=== PATIENT | female | born 1945 | race Caucasian/White ===

== ENCOUNTER 2025-04-30 13:43 | Emergency (ER) | payer MEDICARE, SELFPAY ==
--- NOTE | ~2025-04-30 | CT_ITS ---
CLINICAL HISTORY: head trauma CT Head Without Contrast: Comparison: None Findings: Cortical sulci are symmetric Basal ganglia are unremarkable No shift in midline structures No intraparenchymal bleeding or abnormal extra axial blood fluid collections Normal pituitary size Clear paranasal sinuses Unremarkable orbital structures No depressed fractures Impression: Unremarkable CT of the head, no signs of acute trauma This document has been electronically signed by: Iraj Mendez MD on 04/30/2025 18:19:46
--- NOTE | ~2025-04-30 | CT_ITS ---
CLINICAL HISTORY: trauma CT cervical spine without contrast Comparison: None Findings: Normal limited view of the intracranial contents. Soft tissues of the neck are normal. Lung apices are clear. Normal vertebral body alignment. No fractures or dislocations. There is moderate degenerative narrowing at C5-6 with mild foraminal stenosis. Impression: Moderate degenerative disc disease at C5-6 with mild foraminal stenosis. No signs of acute trauma. This document has been electronically signed by: Iraj Mendez MD on 04/30/2025 18:15:21
[2025-04-30 13:55] VITALS: BP 132/86; BP 199/81; PULSE 68; PULSE 75; RESP 17; TEMP 36.6; O2SAT 94; O2SAT 95; BMI 29.7
[2025-04-30 13:58] VITALS: BP 199/81; PULSE 75; RESP 17; TEMP 36.6; O2SAT 95
--- OUTSIDE RECORDS SUMMARY | 2025-04-30 14:22 | XMS_ITS | Encounter Summary ---
Author Organization [facility] Address [address] [place] [address] [place] [phone] Phone Care Team Providers Care Cut Lace Machine Operator Name Role Phone Radha Riddle MD Unavailable [phone] Radha Riddle MD Primary Care Provider [phone] Reason for Visit * Reason Onset Date Comments Triage 03/25/2025 Red- asthma,whee zing Encounter Details Date Type Department Care Team (Late st Contact Info) Description 03/25/2025 Telephone [facility] [place] [address] [place] [address] Radha Riddle MD [address] [facility] [address] [place] [address] [email or web address] Triage (Red- asthma,wheezing) Social History Tobacco Use Types Packs/Day Years Used Date Smoking Tobacco: Never Smokeless Tobacco: Never Alcohol Use Standard Drinks/Week Comments Yes 0 (1 standard drink = 0.6 oz pur e alcohol) glass of wine 5 days a week Child or Family Care Answer Date Record ed Do you have problems with on e of the following making it difficult for you to work, study, or receive health care? No 08/02/2024 Education Answer Date Recorded Are you interested in more education? Not on april e 06/22/2024 Are you concerned about learning? Not on file 06/22/2024 No 06/22/2024 No 06/22/2024 Food Answer Date Recorded Within the past 6 months we worried whether our food would run out before we got money to buy more. Never True 08/02/2024 Within the past 6 months the food we bought just didn't last and we didn't have enough money to get more. Never True Residential Stability Answer Date Recor ded What is your housing situation today? I have dannielle swenson 08/02/2024 How many times have you move d in the past 12 months? Zero (I did not move) 08/02/2024 Paying for Meds Answer Date Recorded Do you have trouble paying for medicines? No 08/02/2024 Paying Utility Bills Answer Date Record ed Do you have trouble paying your heating or elect ricity bill? No 08/02/2024 Transportation Answer Date Recorded Has the lack of transportati on kept you from medical appointments or from getting medications? No 08/02/2024 Unemployment Answer Date Recorded Are you currently unemployed or working on a part-time or temporary basis, and looking for work? No 06/17/2022 Digital Access Answer Date Recorded No 08/02/2024 Yes 08/02/2024 Do you have reliable internet access at home? Ye s 08/02/2024 Do you have a device (e.g., phone, tablet, computer) with a working camera? Yes 08/02/2024 Intimate Partner Violence Answer Date R ecorded Denied Basic Needs Not on file 08/02/2024 In the past 12 months have y ou been in a relationship with a person who hurts, threatens, or tries to control you? No 08/02/2024 Worried food would run out Not on file 08/02 In the past 12 months have y ou been in a relationship with a person who hurts, threatens, or tries to control you? No 08/02/2024 Comments Unknown Sex and Gender Information Value Date Recorded Sex Assigned at Female 05/30/2020 12:29 PM EST Legal Sex Female 10:09 PM EDT Gender Identity Female 05/30/2020 12:29 PM EST Sexual Orientation Not on file documented as of this encounter Progress Notes * Nadira Durand LPN - 03/25/2025 2:17 PM EDT She started w/ nasal congestion on Friday and has noted over the past several day increase in SOB.She has tried mucinex and zyrtec w/ little effect. She will go now to [facility] for eval and tx. FYI Nurse Triage Encounter Note Reason for Triage Lolis Pickard contacted office for Triage Red- asthma,wheezing Call Disposition Disposition Comments: Patient/caregiver understands and will follow disposition: Initial Symptom Screening and Assessment IA Symptom Onset 3-5 days Care Advice No Care Advice given for this encounter. Patient will call back with additional questions or if symptoms change or worsen Nadira Durand LPN Reason for Disposition and Assessment * Nadira Durand LPN - 03/25/2025 10:58 AM EDT Called Cell number would not ring. Call placed to home phone rang left detailed message to seek emergency care. * Nadira Durand LPN - 03/25/2025 10:10 AM EDT Attempted to call x 2 - would not ring. ( Phone issues site wide) * Mary Hudson - 03/25/2025 9:55 AM EDT [facility] Top Smart Phrases: Red Yellow Green Guidelines Select Red, Yellow, Green Triage Intake *Route to appropriate staff member/pool according to practice guidelines* Red Call Intake Call Back Number: (if not patient, name/relationship and if patient is with caller) [phone] Red Symptom(s): Triage (Red- asthma,wheezing) When did these symptoms start? Past few days Have you ever experienced these symptoms before? NO Additional information: (Call was transferred to nurse) Transfer LIVE call to RN for prompt triage Reason for Call = TRIAGE Comment = RED + symptom Route TE directly to the RN receiving the warm transfer, NOT the nursing pool documented in this encounter Plan of Treatment Upcoming Encounters Date Type Department Care Team (Late st Contact Info) Description 08/05/2025 10:00 AM EST Office Visit [facility] [address] [place] [address] Radha Riddle MD [address] [place] [phone] [email or web address] documented as of this encounter Visit Diagnoses Not on filedocumented in this encounter Additional Health Concerns Infection Onset Date Last Indicated Resolved Time CoV-Risk Comment:Per Ambulatory Triage Form 03/25/2025 03/25/202504/05 1:21 AM EDT Assessment Noted Time PHQ-2 Depression Total Score: 0 08/03/19 25 11:15 AM EST documented as of this encounter Care Teams Cut Lace Machine Operator Relationship Specialty Start Date End Date Radha Riddle MD [address] [place] [phone] [email or web address] PCP - General Family Medicine 12/29/19 Radha Riddle MD [address] [place] [phone] [email or web address] Historical LMR Provider 05/14/17 documented as of this encounter Additional Source Comments The information contained in this document represents components of the legal health record. It is not the complete legal health record.[facility]
--- OUTSIDE RECORDS SUMMARY | 2025-04-30 14:22 | XMS_ITS | Clinical Summary ---
Author Organization [facility] Address [address] [address] Phone Care Team Providers Care Hospital Receiving Clerk Name Role Phone Radha Riddle MD Unavailable [phone] Radha Riddle MD Primary Care Provider Allergies No known active allergies Medications apixaban (ELIQUIS) 5 mg tablet Take 5 mg by mouth 2 (two) times a day. Active sotalol (BETAPACE) 80 MG tablet Take 120 mg by mouth 2 (two) times a day. Active famotidine (PEPCID) 40 MG tabletIndication s:Gastroesophage al reflux disease without esophagitis TAKE 1 TABLET BY MOUTH EVERY DAY 90 tablet 1 07/31/2022 Active cyclobenzaprine (FLEXERIL) 5 MG tabletIndication s:Cervicalgia Take 1 tablet (5 mg total) by mouth 3 (three) times a day as needed. 15 tablet 12/10/2023 Active BREO ELLIPTA 100-25 mcg/dose inhaler Inhale 1 puff into the lungs. 12/09/2023 Active nitrofurantoin (MACROBID) 100 MG capsuleIndicatio ns:Recurrent UTI Take 1 capsule (100 mg total) by mouth 2 (two) times a day. 10 capsule 12/28/2024 Active Active Problems Problem Noted Date Diagnosed Date Acute cough 12/09/2024 Assessment & Plan (12/09/2024 12:35 PM EDT): Lolis presents with a cough-please see plan asthma exacerbation for further detail. Moderate persistent asthma with exacerbation Assessment & Plan (12/09/2024 12:34 PM EDT): I diagnosed Lolis with an asthma exacerbation and I treated her with a prednisone taper-I discussed this taper in the office today-I jaylyn her chart and I gave her guidance regarding side effects. I also wrote for Augmentin-to be taken as directed. I informed her to get a chest x-ray today and I will update her with the results. I informed her to call if her symptoms are not improving or if they are getting worse. She understands and agrees. Cervicalgia 12/10/2023 Overview (02/18/2024): Neck pain in 2023 which seems to be muscular, likely torticollis. No radicular symptoms necessarily. She will let me know if this returns or she has any nerve symptoms in which case we would start with a cervical spine x-ray. Assessment & Plan (12/10/2023 10:33 AM EDT): Patient is well appearing today, symptoms reproducible with ROM but not palpation. No red flag symptoms/findings. Discussed suspected cervical strain. Advised on management of this. Continue acetaminophen as needed but if this is not helping okay to not take. Advised to use cyclobenzaprine as needed. Discussed cautioned use of this given her age. Educated on benefits, risks, and side effects. Encouraged to use topical products and lidocaine patches. Continue ice and heat. Begin gentle stretches as tolerated. Recommended she follow up if symptoms persist despite this treatment plan and will discuss imaging at that time. Gastroesophageal reflux disease without esophagi tis 06/18/2022 Overview (08/01/2023): She his having some epigastric burning now. We will try 1 month of H2 apple and if not completely resolved we will send to GI for possible endoscopy as her brother did have esophageal cancer. She is having no sx on this! No endoscopy done. Cardiac pacemaker 06/18/2022 Chronic midline low back pain without sciatica 1 08/18/2021 Overview (06/18/2022): Recurrent low back pain Has seen [facility] If she has another episode of terrible pain she will reach out to them for possible injection. Actinic keratoses 06/15/2021 Overview (06/15/2021): She has an actinic keratosis on her posterior right neck, right hindu, under her left eye. Cryotherapy performed on all 3 lesions 05/2021 with pulsing therapy for 10 to 15 seconds. Well-tolerated. Fatty liver 06/15/2021 Overview (08/03/2024): Seen on imaging 2017 Elevated LFTs in 2020 Drinks about 1 glass of wine per night Sciatica of left side 12/29/2020 Overview (12/29/2020): This has happened a few times in the past 8 years for her, she thinks when she pulls a muscle. Diclofenac was helpful in the past but she is on elaquis right now and should not take nsaids Flare 12/29/20. Will try valium Swelling of both ankles 01/19/2019 Overview (01/19/2019): Some dependent edema which is likely venous disease Globus sensation 01/19/2019 Overview (01/19/2019): Occasionally she feels like she gets food caught in her mis esophagus. It will self resolve after some time. She has had this for about 1 year and has not been getting worse. Her brother had esophageal cancer. Very rare acid reflux symptoms. She has never had endoscopy. We will try 1 month of zantac and see if this gets better then she likely had GERD, think about endoscopy if not better with this tx DELTA (obstructive sleep apnea) 07/02/2018 Overview (06/22/2019): Moderate on home oxygen study 06/2018 and starting cpap with sleep med She did not get the machine and this was expensive Mild intermittent asthma without complication Overview (12/09/2017): Saw pulm and agree asthma and to use proair PRN for cold weather and exercise and add flovent if needed in the future. 11/2017 Wheezing 09/04/2017 Overview (12/09/2017): She never smoked She says that her parents smoked growing up She has not had any exposures that she knows of She has had wheezing for about 1.5 years and had significant SOB on her stress test 05/2017 CXR shows some hyperinflation Getting PFTs 08/2017 - these look like asthma Saw pulm and agree asthma and to use proair PRN for cold weather and exercise and add flovent if needed in the future. Assessment & Plan (11/12/2017 9:08 AM EDT): Lolis presents for issues with her breathing. I reviewed her PFT's from 08/2017 showing moderate degree of airflow obstruction. She is symptomatically short of breath with going up steps. She was advised to start on proair to be used as directed. She will F/U with her civil engineer land development in November. She will call if there is any other issues. She understands and agrees. Typical atrial flutter 07/17/2017 Overview (07/17/2017): leonor for now, seeing cards at [facility] [employer] [facility] See atrial tach notes Atrial tachycardia 05/29/2017 Overview (06/18/2022): saw cards for high burden on holter. start dilt 10/2016 and getting echo some SOB is only sx now SVT ablation 05/2017 which did not work and flecainide and metop did not control sx pacemaker placed after this in May Sotalol only now at 80 BID - up to 120 BID 07/2017 for increased burden - now less than 1% burden of Fib and doing very well with BB and Eliquis Hearing loss 05/29/2017 Overview (06/06/2017): has hearing aids History of thyroid disease 05/29/2017 Overview (08/03/2024): hyperthyroid for a while in the s, never treated and resolved after meds. 2017 sligthly hypothyroid she is not having sx so we will test this at least once per year Repeat TSH after was 5 05/2017, she is not having any sx She elects to monitor for sx and labs yearly Pre-diabetes 05/29/2017 Overview (06/06/2017): no meds, watching trying to increase exercsie. Recurrent UTI 05/29/2017 Overview (08/03/2024): bactrim has worked in the past 05/2020, 02/2022 and took 3 days of bactrim which worked Next time she will try to get a urine as we have not gotten one in a while. One infection 2022 and no urine obtained We will try to treat with macrobid now as her last one did not respond to bactrim and did to macrobid. Routine medical exam 05/29/2017 Overview (08/03/2024): 2011 colonscopy - no polyps - Dr Blackburn - no change in bowel habits and no Fhx, never abnormals - she would like to hold off on further screening. mammo - yearly at [facility] - they have been nl Pap - no more - seeing me now - exam 2023 She is seeing derm now yearly DXA was about 10 years ago and 15 years ago she took some medication which we are not sure of - we will get DXA again 2019 - this was nl! 2025 again? Encounters Date Type Department Care Team Description 03/25/2025 2:50 PM EDT Office Visit [facility] [address] [place] [address] Alma Wolf, DORENE Acute cough (Primary Dx); Nasal congestion; Wheezing 03/25/2025 Telephone [facility] [address] [place] [address] Radha Riddle MD Triage (Red- asthma,wheezing) from Last 3 Months Immunizations Immunization Administration Dates Next Due COVID-19 (Pre-05/19) Pfizer Vaccine, mRNA, PF 09/07/2020,08/17/2020 Influenza High-Dose Quadriva lent Preservative Free IM 05/15/2023,06/18/2022,04/16/2021,03/14 Influenza High-Dose Trivalen t Preservative Free IM 03/04/2025,03/30/2024,03/31/2019,05/12,07/17/2017 Influenza Quadrivalent w/ Pr eservative IM 07/12/2015 Pneumococcal conjugate PCV13 07/12/2015 Pneumococcal polysaccharide PPSV23 09/01/2013 RSV Vaccine (monovalent, adjuvanted) 06/10/2023 Td (adult),2 Lf Tetanus Toxo id, PF, Adsorbed 08/01/2023 Tdap 09/01/2013 Zoster live 09/01/2011 Zoster recombinant 03/14/2020,03/22/2019, 018 Family History Medical History Relation Comments Esophageal cancer Brother Bladder Cancer Father Breast cancer Maternal Grandmother Parkinson's disease Mother Relation Status Comments Brother Father Maternal Grandmother Mother Sister 1 Alive Sister 2 Alive Social History Tobacco Use Types Packs/Day Years Used Date Smoking Tobacco: Never Smokeless Tobacco: Never Tobacco Cessation:Counseling Given: Not Answered Alcohol Use Standard Drinks/Week Comments Yes 0 [...] your housing situation today? I have dannielle sing 08/02/2024 How many times have you move [...] PM EST Sexual Orientation Not on file Last Filed Vital Signs Vital Sign Reading Time Taken Comments Blood Pressure 147/80 03/25/2025 4:53 PM EDT Pulse 87 03/25/2025 4:53 PM EDT Temperature 36.1 C (97 F) 03/25/2025 4:53 PM EDT Respiratory Rate 20 03/25/2025 4:53 PM EDT Oxygen Saturation 97% 03/25/2025 4:53 PM EDT Inhaled Oxygen Concentration - - Weight 76.2 kg (168 lb) 03/25/2025 4:53 PM EDT Height 165.1 cm (5' 5 ) 03/25/2025 4:53 PM EDT Body Mass Index 27.96 03/25/2025 4:53 PM EDT Plan of Treatment Upcoming Encounters Date Type Department Care Team (Late st Contact Info) Description 08/05/2025 10:00 AM EST Office Visit [facility] [address] [place] [address] Radha Riddle MD [address] [facility], [address] [place] [address] [email or web address] Health Maintenance Due Date Last Done Comments COVID-19 VACCINE ( season) 2025 03/30/2024, 08/28/2023, 01/03/2023, Additional history exists MAMMOGRAM 06/15/2025 06/15/2024, 01/2023, 05/31/2022, Additional history exists CREATININE LEVEL 08/03/2025 08/03/2024, , 08/08/2023, Additional history exists DEPRESSION SCREENING 08/03/2025 08/03/2024 LIPID PANEL 08/03/2025 08/03/2024, 07/28, 08/08/2023, Additional history exists Adult Td,Tdap Booster 08/01/2033 08/01/2023, 014 PNEUMOCOCCAL VACCINES (50+ years) Completed 07/12/2015, 09/01/2013 OSTEOPOROSIS SCREENING INITIAL (ONE-TIME) Completed 04/01/2019 ZOSTER VACCINES Completed 03/14/2020, 02/26, 04/30/2018, Additional history exists RSV VACCINE Completed 06/10/2023 INFLUENZA VACCINE Completed 03/04/2025, , 05/15/2023, Additional history exists HEPATITIS A VACCINES Aged Out No long er eligible based on patient's age to complete this topic HIB VACCINES Aged Out No longer eligi ble based on patient's age to complete this topic MENINGOCOCCAL VACCINES (ACWY) Aged Out No longer eligible based on patient's age to complete this topic MENINGOCOCCAL VACCINES (B) Aged Out N o longer eligible based on patient's age to complete this topic Medical Devices Not on file Procedures Procedure Name Priority Date/Time Associated Diagnosis Comments POCT COVID-19 RT-PCR/INFLUENZA A & B/RSV CEPHEID Routine 03/25/2025 3:49 PM EDT LIPID PANEL Routine 08/03/2024 12:32 PM EST Routine medical exam COMPREHENSIVE METABOLIC PANEL Routine 08/03/2024 12:32 PM EST Pre-diabetes HM MAMMOGRAPHY Routine 06/15/2024 11:35 AM EST BD DXA AXIAL (SPINE) WITH HIP Routine 04/01/2019 8:52 AM EDT Routine medical exam from Last 3 Months or Most Recently Relevant to Health Maintenance Results * POCT COVID-19 RT-PCR/Influenza A & B/RSV (Cepheid) (03/25/2025 3:49 PM EDT) Pathologist [facility] RSV PCR Negative Negative [facility] SARS-CoV-2 (COVID-19) Negative Negative [facility] Influenza A PCR Negative Negative [facility] Influenza B PCR Negative Negative [facility] 03/25/2025 3:49 PM EDT 03/25/2025 4:27 PM EDT Alma Wolf [facility] POINT OF CARE TE ST ORDERABLES Final Result [facility] [address] [phone] * Comprehensive metabolic panel (08/03/2024 12:32 PM EST) SODIUM 138 133 - 146 mmol/L [facility] POTASSIUM 4.0 3.3 - 5.1 mmol/L [facility] CHLORIDE 102 96 - 108 mmol/L [facility] CO2 29 21 - 35 mmol/L [facility] BUN 14 6 - 19 mg/dL [facility] CREATININE 0.50 0.5 - 1.5 mg/dL [facility] GLUCOSE 92 70 - 99 mg/dL [facility] ALBUMIN 4.0 3.9 - 4.8 g/dL [facility] TOTAL PROTEIN 7.4 6.5 - 8.0 g/dL [facility] CALCIUM 9.4 8.4 - 10.3 mg/dL [facility] ALKALINE PHOSPHATASE 87 39 - 117 U/L [facility] TOTAL BILIRUBIN 0.5 0.0 - 1.2 mg/dL [facility] AST 26 0 - 37 U/L [facility] ALT 23 0 - 40 U/L [facility] GLOBULIN 3.4 1 - 4.8 g/dL [facility] EGFR 95 >59 mL/min/1.7 3m2 [facility] Comment:Estimated glomerular filtration rate calculated using the CKD-EPI refit equation. ANION GAP 11 10 - 20 mmol/L [facility] Blood 08/03/2024 12:3 2 PM EST 08/03/2024 12:41 PM EST us Radha Riddle MD LAB BLOOD ORDERABLES Final R esult Performing Organization Address City/State/[facility] Co de Phone Number [address] [address] * (ABNORMAL) Lipid panel (08/03/2024 12:32 PM EST) HDL 94 mg/dL [facility] Comment: Interpretation <40 mg/dL: Low HDL cholesterol (major risk factor for CHD) Greater than or equal to 60 mg/dL: High HDL cholesterol ( negative risk factor for CHD) HDL - cholesterol is affected by a number of factors, e.g. smoking, excerise, hormones, sex and age. CHOLESTEROL 239 0 - 240 mg/dL [facility] TRIGLYCERIDES 94 30 - 160 mg/dL [facility] LDL 126 50 - 129 mg/dL [facility] Comment: LDL levels in terms of risk for coronary heart disease: <100 mg/dL: Optimal 100-129 mg/dL: Near or above optimal 130-159 mg/dL: Borderline high 160-189 mg/dL: High >190 mg/dL: Very High CARDIAC RISK RATIO 2.5(L) 3.3 - 4.4 [facility] Blood 08/03/2024 12:3 2 PM EST 08/03/2024 12:40 PM EST Radha Riddle MD LAB BLOOD ORDERABLES Final R esult [facility] [address] [place] [address] * HM MAMMOGRAPHY FOR RESULT ENTRY ONLY (06/15/2024 11:35 AM EST) Radha Riddle MD HEALTH MAINTENANCE Edited Re sult - Final * BD DXA AXIAL (SPINE) WITH HIP (04/01/2019 8:52 AM EDT) Anatomical Region Laterality Modality Bone Density Bone Density 04/01/2019 9:29 AM EDT Impressions 04/01/2019 9:30 AM EDT Overall normal bone mineral density. POS -[id number] Narrative 04/01/2019 9:30 AM EDT This is a 73-year-old postmenopausal white female with perceived height loss of less than 1 inch over her lifetime. This is a baseline study. Evaluation of the lumbar spine and hips was performed and appears to be technically adequate. Total bone mineral density in the L1-L4 vertebral bodies was calculated at 1.049 gm/cm2 with a T score of 0. This falls within the WHO classification of normal. Total bone mineral density in the right proximal femur was calculated at 0.958 gm/cm2 with a T-score of 0.1 falling within the WHO classification of normal. Total bone mineral density in the left proximal femur was calculated at 0.915 gm/cm2 with a T-score of -0.2 falling within the WHO classification of normal. Procedure Note Tracie Mcmanus MD - 04/01/2019 This is a 73-year-old postmenopausal white female with perceived heightloss of less than 1 inch over her lifetime. This is a baseline study. Evaluation of the lumbar spine and hips was performed and appears to betechnically adequate. Total bone mineral density in the L1-L4 vertebral bodies was calculated at1.049 gm/cm2 with a T score of 0. This falls within the WHOclassification of normal. Total bone mineral density in the right proximal femur was calculated at0.958 gm/cm2 with a T-score of 0.1 falling within the WHO classificationof normal. Total bone mineral density in the left proximal femur wascalculated at 0.915 gm/cm2 with a T-score of -0.2 falling within the WHOclassification of normal. IMPRESSION: Overall normal bone mineral density. POS -[id number] Radha Riddle MD IMG BD BONE DENSITY DEXA Fin al Result from Last 3 Months or Most Recently Relevant to Health Maintenance Insurance MEDICARE PPO BLUE REPLACEMENT MEDICARE PPO BLUE REPLACEMENT MEDICARE PPO BLUE [place] [address] [address] [place] [address] MEDICARE PPO BLUE [place] [address] MEDICARE PPO BLUE REPLACEMENT [place] MEDICARE PPO BLUE REPLACEMENT Care Teams Hospital Receiving Clerk Relationship Specialty Start Date End Date Radha Riddle MD [address] [address] [email or web address] PCP - General Family Medicine 12/29/19 Radha Riddle MD [address] [address] [email or web address] Historical LMR Provider 05/14/17 Additional Source Comments The information contained in this document represents components of the legal health record. It is not the complete legal health record.[facility]
--- OUTSIDE RECORDS SUMMARY | 2025-04-30 14:22 | XMS_ITS | Encounter Summary ---
Author Organization [facility] Address [address] [place] [address] Care Team Providers Care Hotbed Operator Name Role Phone Radha Riddle MD Primary Care Provider Reason for Visit * Reason Onset Date Comments Procedure 03/14/[address] w/ Dr. Obrien at [facility] Encounter Details Date Type Department Care Team (Late st Contact Info) Description 03/14/2025 Telephone [facility] - [facility] [address] [facility] [address] [place] [id number] Juni Obrien MD [address] [facility] [address] [place] [address] Social History Tobacco Use Types Packs/Day Years Used Date Smoking Tobacco: Never Smokeless Tobacco: Never Alcohol Use Standard Drinks/Week Comments Yes 1 (1 standard drink = 0.6 oz pur e alcohol) occasional wine Comments Unknown Sex and Gender Information Value Date Recorded Sex Assigned at Not on file Legal Sex Female 1:22 PM EST Gender Identity Not on file Sexual Orientation Not on file documented as of this encounter Progress Notes * Whit Ramirez - 04/29/2025 1:27 PM EDT Prior authorization request submitted for cpt code 15789, request is currently pending for medical review. Pending case number is [id number]. * Rudy Galan - 04/29/2025 10:48 AM EDT Watchman as inpatient [id number] Dx Afib I48.11 w/ JPM at [facility] on 05.05.25 - attentively date can we get an auth for next week? Let me know * Rudy Adama - 03/14/2025 1:12 PM EDT Images from the original note were not included. MD Rudy Baker Please schedule this patient for a watchman. documented in this encounter Plan of Treatment Upcoming Encounters Date Type Department Care Team (Late st Contact Info) Description 05/05/2025 10:30 AM EDT Office Visit Pulmonology - [place] [address] [facility] [address] [place] [address] Shania Sims MD [address] [facility] [address] [place] [address] 06/13/2025 10:30 AM EST Ancillary Procedure [facility] [address] [facility] [address] [place] [phone] Scheduled Procedures Name Priority Associated Diagnoses Date/Ti me LEFT ATRIAL APPENDAGE CLOSUR E (OTHER) PAF (paroxysmal atrial fibrillation) (CMS/HCC V24, CMS/HCC V28) documented as of this encounter Visit Diagnoses Not on filedocumented in this encounter Care Teams Hotbed Operator Relationship Specialty Start Date End Date Radha Riddle MD [address] [place] [address], [address] [place] [address] PCP - General 1945 documented as of this encounter
--- OUTSIDE RECORDS SUMMARY | 2025-04-30 14:22 | XMS_ITS | Encounter Summary ---
Author Organization Formerly [facility] Address [address] [place] [address] Phone Care Team Providers Care Liability Claims Adjuster Name Role Phone Radha Riddle MD Unavailable [phone] Hilario Weinberg MD Unavailable [phone] Radha Riddle MD Primary Care Provider Encounter Details Date Type Department Care Team (Late st Contact Info) Description 05/08/2021 Transcribe Orders [facility] [address] [place] [address] [place] [address] Tona Mg PA [address] [address] Palpitations (Primary Dx); PAC (premature atrial contraction) Social History Tobacco Use Types Packs/Day Years Used Date Smoking Tobacco: Never Smokeless Tobacco: Never Alcohol Use Standard Drinks/Week Comments Yes 0 (1 standard drink = 0.6 oz pur e alcohol) glass of wine 5 days a week Comments Unknown Sex and Gender Information Value Date Recorded Sex Assigned at Female 05/30/2020 12:29 PM EST Legal Sex Female 10:09 PM EDT Gender Identity Female 05/30/2020 12:29 PM EST Sexual Orientation Not on file documented as of this encounter Plan of Treatment Upcoming Encounters Date Type Department Care Team (Late Contact Info) Description 08/05/2025 10:00 AM EST Office Visit [facility] [address] [place] [address] Radha Riddle MD [address] [place] [address] [address] [place] [address] [email or web address] documented as of this encounter Results * (ABNORMAL) Comprehensive metabolic panel (05/08/2021 10:30 AM EDT) SODIUM 139 133 - 146 mmol/L [facility] POTASSIUM 4.8 3.3 - 5.1 mmol/L [facility] CHLORIDE 104 96 - 108 mmol/L [facility] CO2 28 21 - 35 mmol/L [facility] BUN 13 6 - 19 mg/dL [facility] CREATININE 0.50 0.5 - 1.5 mg/dL [facility] GLUCOSE 118(H) 70 - 99 mg/dL [facility] ALBUMIN 4.1 3.9 - 4.8 g/dL [facility] TOTAL PROTEIN 7.1 6.5 - 8.0 g/dL [facility] CALCIUM 9.2 8.4 - 10.3 mg/dL [facility] ALKALINE PHOSPHATASE 87 39 - 117 U/L [facility] TOTAL BILIRUBIN 0.6 0.0 - 1.2 mg/dL [facility] AST 80(H) 0 - 37 U/L [facility] ALT 94(H) 0 - 40 U/L [facility] GLOBULIN 3.0 1 - 4.8 g/dL [facility] EGFR 93 >59 mL/min/1.7 3m2 [facility] Comment:Estimated glomerular filtration rate calculated using the CKD-EPI equation. ANION GAP 12 10 - 20 mmol/L [facility] Blood 05/08/2021 10:3 0 AM EDT 05/08/2021 10:34 AM EDT us Tona TIJERINA LAB BLOOD ORDERABLES Final Re sult [facility] [address] [place] [address] * (ABNORMAL) CBC and differential (05/08/2021 10:30 AM EDT) WBC 4.62 4.00 - 11.00 K/uL [facility] RBC 4.29 3.72 - 5.30 M/uL [facility] HGB 13.4 11.4 - 15.9 g/dL [facility] HCT 40.5 34.2 - 46.8 % [facility] PLT 325 140 - 430 K/uL [facility] MCV 94.4 78.0 - 97.0 fL [facility] MCH 31.2 25.0 - 33.0 pg [facility] MCHC 33.1 32.0 - 36.0 g/dL [facility] RDW 12.6 11.0 - 16.0 % [facility] MPV 9.3 8.4 - 12.8 fl [facility] NRBC 0.00 0 /100 WBCs [facility] ABSOLUTE NRBC 0.00 0 K/uL [facility] DIFF METHOD Auto [facility] NEUTS 52.6 43.0 - 75.0 % [facility] LYMPHS 25.5 18.2 - 47.4 % [facility] MONOS 11.5(H) 4.00 - 11.00 % [facility] EOS 8.7(H) 0.0 - 8.0 % [facility] BASOS 1.5 0.0 - 2.0 % [facility] Granulocytes, immature (%) 0.2 0.0 - 0.9 % [facility] ABSOLUTE NEUTS 2.43 1.80 - 7.70 K/uL [facility] ABSOLUTE LYMPHS 1.18 1.00 - 3.10 K/uL [facility] ABSOLUTE MONOS 0.53 0.20 - 0.80 K/uL [facility] ABSOLUTE EOS 0.40 0.00 - 0.80 K/uL [facility] ABSOLUTE BASOS 0.07 0.00 - 0.09 K/uL [facility] Granulocytes, immature 0.01 0.00 - 0.05 K/uL [facility] Blood 05/08/2021 10:3 0 AM EDT 05/08/2021 10:34 AM EDT us Tona TIJERINA LAB BLOOD ORDERABLES Final Re sult [address] [address] * (ABNORMAL) Lipid panel (05/08/2021 10:30 AM EDT) HDL 86 mg/dL [facility] Comment: Interpretation <40 mg/dL: Low HDL cholesterol (major risk factor for CHD) Greater than or equal to 60 mg/dL: High HDL cholesterol ( negative risk factor for CHD) HDL - cholesterol is affected by a number of factors, e.g. smoking, excerise, hormones, sex and age. CHOLESTEROL 219 0 - 240 mg/dL [facility] TRIGLYCERIDES 80 30 - 160 mg/dL [facility] LDL 117 50 - 129 mg/dL [facility] Comment: LDL levels in terms of risk for coronary heart disease: <100 mg/dL: Optimal 100-129 mg/dL: Near or above optimal 130-159 mg/dL: Borderline high 160-189 mg/dL: High >190 mg/dL: Very High CARDIAC RISK RATIO 2.5(L) 3.3 - 4.4 [facility] Blood 05/08/2021 10:3 0 AM EDT 05/08/2021 10:34 AM EDT us Tona TIJERINA LAB BLOOD ORDERABLES Final Re sult [address] [address] documented in this encounter Visit Diagnoses Diagnosis Palpitations- Primary PAC (premature atrial contraction) Supraventricular premature beats documented in this encounter Additional Health Concerns Infection Onset Date Last Indicated Resolved Time CoV-Risk Comment:Per Ambulatory Triage Form 03/25/2025 03/25/202504/05 1:21 AM EDT Assessment Noted Time PHQ-2 Depression Total Score: 0 01/17/20 18 8:59 AM EDT documented as of this encounter Care Teams Liability Claims Adjuster Relationship Specialty Start Date End Date Radha Riddle MD [address] [place] [address], [address] [place], [place] [phone] [email or web address] PCP - General Family Medicine 12/29/19 Radha Riddle MD [address] [facility], [address] [place] [address] [email or web address] Historical LMR Provider 05/14/17 Hilario Weinberg MD [address] [facility] [address] [place] [address] [email or web address] Historical LMR Provider 05/14/17 08/04/21 documented as of this encounter Additional Source Comments The information contained in this document represents components of the legal health record. It is not the complete legal health record.Formerly [facility]
--- OUTSIDE RECORDS SUMMARY | 2025-04-30 14:22 | XMS_ITS | Clinical Summary ---
Author Organization [address] [place] [address] Address [address] [place] [address] Phone Care Team Providers Care O And M Supervisor Name Role Phone Radha Riddle MD Primary Care Provider [phone] Allergies No known active allergies Medications inhaler, assist devices (AEROCHAMBER MV MISC) 1 Device by Does not apply route as needed (wheezing). 12/02/2017 Active sotaloL (BETAPACE) 120 mg tablet Take 1 tablet (120 mg total) by mouth 2 (two) times a day. 180 tablet 1 08/11/2024 Active apixaban (Eliquis) 5 mg tablet Take 1 tablet (5 mg total) by mouth 2 (two) times a day. 180 tablet 3 08/11/2024 Active famotidine (PEPCID) 10 mg tablet Take 1 tablet (10 mg total) by mouth 1 (one) time each day. Active Active Problems Problem Noted Date Diagnosed Date PAF (paroxysmal atrial fibri llation) (CMS/[facility] V24, [facility] V28) 12/30/2024 Assessment & Plan (12/30/2024 1:47 PM EDT): We will continue to monitor her overall A-fib burden on her remote device. At this time she continues on sotalol for rhythm control. Anticoagulated with Eliquis for stroke reduction. Educated on risks and benefits of continuing with anticoagulation including increased risk for hemorrhage and decreased risk for stroke. Encouraged to seek emergent medical attention should the patient sustain a fall involving a head strike. The patient understands these risks and agrees to continue. The patient was inquiring about the Watchman procedure and is interested in talking with our EP service that she understands this would allow her to discontinue anticoagulation. Borderline high blood pressure 12/10/2023 Overview (04/29/2024): Last Assessment & Plan: Patient's blood pressure is mildly elevated during today's exam with a reading of 140/74, this is likely in the setting of ongoing neck pain. I did talk about the potential of starting the patient on an antihypertensive medication. She does inform me that at her other doctors visits her pressure has been less than 120. She will continue to keep an eye on her blood pressure and will reach out to our office should she get readings consistently greater than 140/80 I did inform her that our goal would to be have her blood pressure to be less than 130/70. She does understand the possibility of having to be started on antihypertensives should her blood pressure continue to be elevated. Educated on the importance of diet lifestyle modification to help further assist in reducing blood pressure. She was encouraged to follow low-salt low-fat diet, make purposeful strides towards weight loss, and engage in routine aerobic exercise as tolerated. Assessment & Plan (12/30/2024 1:47 PM EDT): Acceptable during today's exam with reading of 122/70. I have made no changes to her medications. Educated on the importance of diet lifestyle to help further assist in reducing blood pressure. The patient was encouraged to follow low-salt low-fat diet, make purposeful strides towards weight loss, and engage in routine aerobic exercise as tolerated. PAC (premature atrial contraction) 05/02/2021 Overview (04/29/2024): Last Assessment & Plan: Denies perception of recurrence of arrhythmia. She continues to be anticoagulated on full dose Eliquis as her weight is greater than 60 kg and her age is less than 80. Her [id number] score is 3 for age and gender modifier. Educated on risks and benefits of continuing with anticoagulation including increased risk for hemorrhage and decreased risk for stroke. She was encouraged to seek emergent medical attention should she sustain a fall involving head strike. She understands these risks and agrees to continue. Maintaining sinus rhythm on her current dose of sotalol. QTc within normal limits on EKG today. Assessment & Plan (06/29/2024 11:56 AM EST): Orders: ECG 12 lead Transthoracic echocardiogram (TTE) complete with PRN contrast, bubble, strain, and 3D order panel; Future Palpitations 05/02/2021 Assessment & Plan (12/30/2024 1:47 PM EDT): Denies perception of recurrence of palpitations. Will continue to monitor overall burden with her remote device. Orders: ECG 12 lead Tachy-abdoulaye syndrome (CMS/HCC V24, CMS/HCC V28) 05/02/2021 Overview (04/29/2024): Last Assessment & Plan: Status post pacemaker implant. Recent device check revealed normal device function with no new alerts or arrhythmias. Continue to monitor device function as well as arrhythmia burden via her remote monitor. Assessment & Plan (12/30/2024 1:47 PM EDT): Patient has pacemaker implant. She has about a year left for battery longevity via her November remote device download. DELTA (obstructive sleep apnea) 07/02/2018 Overview (03/03/2025): Moderate on home oxygen study 06/2018 and starting cpap with sleep med She did not get the machine and this was expensive Moderate asthma 12/02/2017 Overview (04/29/2024): Last Assessment & Plan: She continues to follow with Dr. Sims. She is making purposeful strides towards being more compliant with her inhalers to further reduce wheezing. Encounters Date Type Department Care Team Description 04/29/2025 Telephone [facility] Structural Heart [address] [place] [address] Keya Caballero RN 03/15/2025 Episode Changes [facility] Cardiac Movie Shot Camera Operator [address] [place] [address] Columba Novak RN 03/14/2025 10:25 AM EDT Consult [facility] [address] [place] [phone] Juni Obrien MD PAF (paroxysmal atrial fibrillation) (CMS/HCC V24, CMS/HCC V28) (Primary Dx) 03/14/2025 Telephone [facility] [address] [place] [phone] Juni Obrien MD 03/09/2025 9:30 PM EDT Ancillary Procedure [facility] [address] [facility] [address] [place] [phone] from Last 3 Months Immunizations Immunization Administration Dates Next Due Pfizer SARS-CoV-2 COVID-19, mRNA, LNP-S, preservative free 04/23/2021 Social History Tobacco Use Types Packs/Day Years Used Date Smoking Tobacco: Never Smokeless Tobacco: Never Tobacco Cessation:Counseling Given: Not Answered Alcohol Use Standard Drinks/Week Comments Yes 1 (1 standard drink = 0.6 oz pur e alcohol) occasional wine Comments Unknown Sex and Gender Information Value Date Recorded Sex Assigned at Not on file Legal Sex Female 1:22 PM EST Gender Identity Not on file Sexual Orientation Not on file Obstetrics History Last Filed Vital Signs Vital Sign Reading Time Taken Comments Blood Pressure 100/70 03/14/2025 10:27 AM EDT Pulse 60 03/14/2025 10:27 AM EDT Temperature 36.8 C (98.3 F) 06/10/2024 11:36 AM EST Respiratory Rate 16 06/10/2024 11:36 AM EST Oxygen Saturation 97% 03/14/2025 10:27 AM EDT Inhaled Oxygen Concentration - - Weight 76.7 kg (169 lb) 03/14/2025 10:27 AM EDT Height 152.4 cm (5') 03/14/2025 10:27 AM EDT Body Mass Index 33.01 03/14/2025 10:27 AM EDT Plan of Treatment Upcoming Encounters Date Type Department Care Team (Late st Contact Info) Description 05/05/2025 10:30 AM EDT Office Visit Pulmonology - [place] [address] [place] [phone] Shania Sims MD [address] [place] [address] 06/13/2025 10:30 AM EST Ancillary Procedure [facility] [address] [facility] [address] [place] [phone] Scheduled Procedures Name Priority Associated Diagnoses Date/Ti me LEFT ATRIAL APPENDAGE CLOSUR E (OTHER) PAF (paroxysmal atrial fibrillation) ([facility] V24, [facility] V28) Health Maintenance Due Date Last Done Comments Hepatitis A Vaccines (1 of 2 - Risk 2-dose series) 1964 Hepatitis B Vaccines (1 of 3 - Risk 3-dose series) 2004 Falls Risk Assessment 07/06/2022 Medicare Annual Wellness Visit 07/06/2022 Social Influencers of Health Screening 07/06/2022 Depression Screening 07/28/2024 Osteoporosis Screening (Bone Density Screening) 04/01/2029 04/01/2019 Cholesterol Screening (Lipid Panel) 08/03/2029 08/03/2024, 08/08/2023, 08/08/2023 DTaP,Tdap,and Td Vaccines (3 - Td or Tdap) 08/01/2033 08/01/2023, 09/01/2013 Zoster Vaccines Completed 03/14/2020, 02/26, 04/30/2018, Additional history exists RSV Immunization Adult Patients Completed 06/10/2023 Influenza Vaccine Completed 03/04/2025, , 05/15/2023, Additional history exists COVID-19 Vaccine Completed 04/18/2025, 09/2023, 08/28/2023, Additional history exists Pneumococcal Vaccine: 50+ Years Completed 04/18/2025, 07/12/2015, 09/01/2013 HIB Vaccines Aged Out No longer eligi ble based on patient's age to complete this topic HPV Vaccines Aged Out No longer eligi ble based on patient's age to complete this topic IPV Vaccines Aged Out No longer eligi ble based on patient's age to complete this topic MMR Vaccines Aged Out No longer eligi ble based on patient's age to complete this topic Meningococcal ACWY Vaccine Aged Out N o longer eligible based on patient's age to complete this topic Meningococcal B Vaccine Aged Out No l onger eligible based on patient's age to complete this topic RSV Immunization Patients Under 20 months Aged Out No longer eligible based on patient's age to complete this topic Varicella Vaccines Aged Out No longer eligible based on patient's age to complete this topic Medical Devices Implanted Type Area Consulting Sme Device Identifier Shelf Expiration Date Model / Serial / Lot Abbt-Stju 2272 Assurity Mri(Tm) [id number] Implanted:03/2017 by Juni Obrien MD (Quantity not on file) Cardiac Pacemaker Left: Chest [facility] [employer] 2272 ASSURITY MRI(TM) / [id number] / Abbt-Stju Assurity Mri [id number] Implanted:03/2017 (Quantity not on file) Cardiac Pacemaker [employer] [facility] [employer] MRI 2272 / [id number] / Procedures Procedure Name Priority Date/Time Associated Diagnosis Comments ECG 12-LEAD Routine 03/14/2025 10:39 AM EDT PAF (paroxysmal atrial fibrillation) (CMS/HCC V24, CMS/HCC V28) CARDIAC DEVICE CHECK- REMOTE- MURJ Routine 03/09/2025 9:28 PM EDT LIPID PANEL Routine 08/08/2023 from Last 3 Months or Most Recently Relevant to Health Maintenance Results * ECG 12 lead (03/14/2025 10:39 AM EDT) Ventricular Rate ECG 60 BPM GEMUSE Atrial Rate 60 BPM GEMUSE P-R Interval 172 ms GEMUSE QRS Duration 68 ms GEMUSE Q-T Interval 454 ms GEMUSE QTc 454 ms GEMUSE P Wave [place] 60 degrees GEMUSE R [place] 38 degrees GEMUSE T [place] 64 degrees GEMUSE ECG Interpretation Atrial-paced rhythm Abnormal ECG When compared with ECG of 30-DEC-2024 13:19, No significant change was found Confirmed by Ye OBRIEN JOHN ([id number]) on 03/15/2025 3:43:37 PM GEMUSE 03/14/2025 10:3 9 AM EDT 03/15/2025 3:43 PM EDT us Juni Obrien MD ECG ORDERABLES Final Result GEMUSE * Cardiac device check - Remote- MURJ (03/09/2025 9:28 PM EDT) Date Time Interrogation Session [id number] CV DEVICE CHECK Type Interrogation Session Remote Scheduled CV DEVICE CHECK Implantable Pulse Generator Consulting Sme [employer] CV DEVICE CHECK Implantable Pulse Generator Type IPG CV DEVICE CHECK Implantable Pulse Generator Model 2272 Assurity MRI(TM) CV DEVICE CHECK Implantable Pulse Generator Serial Number [id number] CV DEVICE CHECK Implantable Pulse Generator Implant Date [id number] CV DEVICE CHECK Battery Remaining Percentage 10.00 CV DEVICE CHECK Battery Remaining Longevity 12.0 CV DEVICE CHECK Battery Voltage 2.830 CV D EVICE CHECK Battery FISHER TROLL LINE Trigger 2.600 CV DEVICE CHECK Battery Status Middle of Service CV DEVICE CHECK Abdoulaye Statistic RA Percent Paced 71.00 CV DEVICE CHECK Abdoulaye Statistic RV Percent Paced 1.00 CV DEVICE CHECK Atrial Tachy Statistic AT/AF [place] Percent 0.00 CV DEVICE CHECK Lead Channel Sensing Intrinsic Amplitude 5.000 CV DEVICE CHECK Lead Channel Setting Sensing Sensitivity 0.50 CV DEVICE CHECK Lead Channel Impedance Value 390 CV DEVICE CHECK Lead Channel Pacing Threshold Amplitude 0.500 CV DEVICE CHECK Lead Channel Pacing Threshold Pulse Width 0.5 CV DEVICE CHECK Lead Channel RA Pacing Threshold Date 2025-03-07 CV DEVICE CHECK Lead Channel Setting Pacing Amplitude 1.500 CV DEVICE CHECK Lead Channel Setting Pacing Pulse Width 0.5 CV DEVICE CHECK Lead Channel Sensing Intrinsic Amplitude 12.000 CV DEVICE CHECK Lead Channel Setting Sensing Sensitivity 2.00 CV DEVICE CHECK Lead Channel Impedance Value 750 CV DEVICE CHECK Lead Channel Setting Pacing Amplitude 2.000 CV DEVICE CHECK Lead Channel Setting Pacing Pulse Width 0.5 CV DEVICE CHECK Abdoulaye Setting Mode (NBG Code) DDDR CV DEVICE CHECK Abdoulaye Setting Lower Rate Limit 60 CV DEVICE CHECK Abdoulaye Setting AT Mode Switch Rate 180 CV DEVICE CHECK Abdoulaye Setting Maximum Tracking Rate 120 CV DEVICE CHECK Abdoulaye Setting Maximum Sensor Rate 120 CV DEVICE CHECK Abdoulaye Setting PAV Delay 275 CV DEVICE CHECK Abdoulaye Setting YASEMIN Delay 250 CV DEVICE CHECK Date of Service 2025-03-17 CV DEVICE CHECK Anatomical Region Laterality Modality Device Interroga tion 03/07/2025 2:00 AM EDT Impressions 03/09/2025 1:55 PM EDT Normal Remote: No Events * Normal Device Function * Alerts or events: None * Battery: Battery is at 10%, 1.00 yrs * Sensing, impedance and thresholds reviewed * Programmed parameters reviewed * Presenting rhythm reviewed * Heart Rate Histograms reviewed * No significant changes noted Narrative Procedure Note Juni Obrien MD - 03/09/2025 IMPRESSION: Normal Remote: No Events * Normal Device Function * Alerts or events: None * Battery: Battery is at 10%, 1.00 yrs * Sensing, impedance and thresholds reviewed * Programmed parameters reviewed * Presenting rhythm reviewed * Heart Rate Histograms reviewed * No significant changes noted Juni Obrien MD CV IMPLANTABLE CARDIAC DEVICE PROCEDURES Final Result * Lipid panel (08/08/2023) LDL/HDL Ratio 0 Comment:no interpretation Triglycerides 0 mg/dL Comment:no interpretation Cholesterol 0 mg/dL Comment:no interpretation HDL 0 mg/dL Comment:no interpretation LDL Cholesterol 0 mg/dL Comment:no interpretation Blood Venous blood specimen / Unknown Historical Provider LAB BLOOD ORDERABLES Herminia l Result from Last 3 Months or Most Recently Relevant to Health Maintenance Insurance [employer] - [place] MEDICARE ADVANTAGE Care Teams O And M Supervisor Relationship Specialty Start Date End Date Radha Riddle MD [address] [place] [address], [address] [place], [place] [phone] PCP - General 1945
--- OUTSIDE RECORDS SUMMARY | 2025-04-30 14:22 | XMS_ITS | Encounter Summary ---
Author Organization [facility] Address [address] [place] [address] Care Team Providers Care Cereal Miller Name Role Phone Radha Riddle MD Primary Care Provider [phone] Reason for Visit * Reason Onset Date Comments [place] scheduling 04/29/2025 Encounter Details Date Type Department Care Team (Late Contact Info) Description 04/29/[address] [address] Keya Caballero RN Social History Tobacco Use Types Packs/Day Years [...] as of this encounter Progress Notes * Keya Caballero RN - 04/29/2025 11:52 AM EDT Date of 05/05 offered for lilli Garnica unable to accept this day. We will reach out with a new procedure date in documented in this encounter Plan of Treatment Upcoming Encounters Date Type Department Care Team (Late st Contact Info) Description 05/05/2025 10:30 AM EDT Office Visit Pulmonology - [address] [place] [address] Shania Sims MD [address] [place] [address] 06/13/2025 10:30 AM EST Ancillary Procedure [facility] - [address] [place] [address] Scheduled Orders Name Type Priority Associated Diagnoses Orde r Schedule Prothrombin time with INR Lab Routine PAF (paroxysmal atrial fibrillation) ([facility] V24, [facility] V28) 1 Occurrences starting 04/29/2025 until 04/29/2026 CBC and differential Lab Routine PAF (paroxysmal atrial fibrillation) ([facility] V24, [facility] V28) 1 Occurrences starting 04/29/2025 until 04/29/2026 Basic metabolic panel Lab Routine PAF (paroxysmal atrial fibrillation) ([facility] V24, [facility] V28) 1 Occurrences starting 04/29/2025 until 04/29/2026 Scheduled Procedures Name Priority Associated Diagnoses Date/Ti me LEFT ATRIAL APPENDAGE CLOSUR E (OTHER) PAF (paroxysmal atrial fibrillation) ([facility] V24, [facility] V28) documented as of this encounter Visit Diagnoses Diagnosis PAF (paroxysmal atrial fibrillation) ([facility] V24, [facility] V28)- Primary Atrial fibrillation Encounter for adjustment or management of cardiac device documented in this encounter Care Teams Cereal Miller Relationship Specialty Start Date End Date Radha Riddle MD [address] [place] [address], [address] [place] [address] PCP - General 1945 documented as of this encounter
--- NOTE | 2025-04-30 16:18 | ED.GENADULT ---
[facility] - General Adult General Chief complaint: Fall Stated complaint: Mechanical fall, +thinners, -LOC, +HS, r elbow avu Time Seen by Provider: 04/30/25 15:30 Source: patient Mode of arrival: ambulatory Limitations: no limitations History of Present Illness ED Provider: Dr. Mccoy [facility] narrative: This is a 80-year-old female presented hospital today after a mechanical fall. Patient states she tripped and fell in her driveway and landed forward and landed her face. She denies any C-spine tenderness denies any pain in her chest and abdomen. Denies any pain in her lower extremities. She sustained abrasion to her right elbow. And to her nose and her forehead. No loss of consciousness. Patient is currently on blood thinner Eliquis for ventricular tachycardia. Related Data Allergies Allergy/AdvReac Type Severity Reaction Status Date / Time No Known Allergies Allergy Verified 04/30/25 13:57 Review of Systems Review of Systems: Pertinent review of systems as mentioned in [facility]. All other system otherwise negative. [facility] Past Medical History [facility] Narrative: Medical history as mentioned in [facility] Physical Exam ED Exam Exam: General: Pleasant, no distress, interacting appropriately Head: Normacephalic, abrasion of the forehead and the bridge of the nose ENT: oral mucosa moist, neck supple, no tracheal deviation, no C-spine tenderness Cardiovascular: regular rate, regular rhythm, no murmurs, rubbing, gallops, no chest ecchymosis no chest wall tenderness on palpation Respiratory: CTAB, no wheeze, rales, rhonchi Gastrointestinal: Soft, non distended, non tender, non guarding, no ecchymosis of the abdomen Extremities: Abrasion on the right elbow. Range of motion intact in the right upper extremity. CMS intact. Neurological: Awake and alert, no facial droop noted Skin: Warm and dry Psychiatric: Appropriate mood and thoughts Vital Signs: Vital Signs - 24 hr 04/30/25 13:55 04/30/25 13:58 04/30/25 13:58 Temperature 97.8 F 97.8 F 97.8 F Pulse Rate 75 75 75 Respiratory Rate 17 17 17 Blood Pressure 199/81 H 199/81 H 199/81 H Pulse Oximetry 95 95 95 Oxygen Delivery Method Room Air Room Air BMI result Body Mass Index 29.7 Medications Administered Discontinued Medications Generic Name Dose Route Start Last Admin Trade Name Freq PRN Reason Stop Dose Admin Acetaminophen 975 mg 04/30/25 17:11 04/30/25 17:17 Acetaminophen 325 Mg Tablet PO 04/30/25 17:12 975 mg ONCE ONE Administration Medical Decision Making Medical Decision Making [facility] Narrative: This is a 80-year-old female on [facility] presented hospital today for a closed head injury after mechanical fall. Obtain a CT head and CT C-spine at this time. Patient states her tetanus shot is up-to-date at this time. A dose of Tylenol will be given for pain. Patient's CT head and CT C-spine is negative. Patient's wound was irrigated and dressed. We will plan to discharge patient home. Concussion precautions provided. Patient agrees and understands this plan all questions were addressed. Differential Diagnosis Differential Diagnoses: The differential diagnosis associated with the presentation includes Intracranial bleed, forehead abrasion, elbow abrasion, elbow fracture. Independent Interpretation I performed an independent interpretation of an: CT Scan Radiology Impression Discussion of test interpretation with radiology: I have reviewed the radiologist's reading. Discharge Plan Discharge Clinical Impression: Closed head injury Qualifiers: Encounter type: initial encounter Qualified Code(s): S09.90XA - Unspecified injury of head, initial encounter Patient Disposition: Home, Self-Care Instructions: Head Injury (ED) Interventions: ED Discharge Assessment Last Done: 04/30/25 19:37 Print Language: Vietnamese
--- NOTE | 2025-04-30 17:42 | PC.NURSE ---
Verbal orders received from ED provider to apply DSG to R elbow: Xeroform, Non-adherent and gauze wrap. Abrasions to R elbow cleansed with sterile water and sterile gauze. Xeroform cut to size and applied to wound followed by sterile non-adherent pad. DSG secured with gauze wrap. Pt tolerated procedure well. Awaiting CT scan results.
[2025-04-30 19:37] VITALS: BP 199/81; PULSE 75; RESP 17; TEMP 36.6; O2SAT 95
== END 2025-04-30 19:38 | disposition home or self-care (01) ==
PROVIDERS: Emergency Provider Student in an Organized Health Care Education/Training Program; PCP Family Medicine
DX: S00.81XA Abrasion of other part of head, initial encounter (principal); S50.311A Abrasion of right elbow, initial encounter; S00.31XA Abrasion of nose, initial encounter; R51.9 Headache, unspecified; M54.2 Cervicalgia; I47.20 Ventricular tachycardia, unspecified; X58.XXXA Exposure to other specified factors, initial encounter; W01.0XXA Fall on same level from slipping, tripping and stumbling without subsequent striking against object, initial encounter; Y93.01 Activity, walking, marching and hiking; Y92.9 Unspecified place or not applicable; Y99.8 Other external cause status; Z91.81 History of falling; Z79.01 Long term (current) use of anticoagulants; Z79.899 Other long term (current) drug therapy
CPT/HCPCS: 70450; 72125; 99284

== ENCOUNTER → 2025-04-30 15:24 | Outpatient (BNV) | payer MEDICARE, SELFPAY | PROVIDERS: Emergency Provider Student in an Organized Health Care Education/Training Program; PCP Family Medicine; Visit Provider Radiology Diagnostic Radiology | DX: M50.322 Other cervical disc degeneration at C5-C6 level (principal); S09.90XA Unspecified injury of head, initial encounter; W19.XXXA Unspecified fall, initial encounter | CPT/HCPCS: 70450; 72125 ==